=== PATIENT | female | born 1940 | race Caucasian/White ===

== ENCOUNTER 2018-09-08 13:30 | Emergency (ER) | payer MEDICARE, OTHER ==
[2018-09-08 15:02] VITALS: BP 140/71
[2018-09-08 15:02] LABS: ANION GAP 11.3 mmol/L (5-15); CHLORIDE,CL 102 mmol/L (98-115); SODIUM,NA 136 mmol/L (136-145)
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
== END 2018-09-08 15:38 | disposition home or self-care (01) ==
LOC: KA.ED 13:30
DX: K59.00 Constipation, unspecified (principal)
CPT/HCPCS: 36415; 80048; 81001; 85025; 99284

== ENCOUNTER 2021-01-10 15:47 | Emergency (ER) | payer MEDICARE, OTHER ==
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
[2021-01-10] MEDS ORDERED: Alum Hydrox/Mag Hydrox/Simeth 30 ML, Lidocaine 2% 15 ML PO ONE ×2 (15:58)
[2021-01-10 16:04] VITALS: BP 108/87; PULSE 93
== END 2021-01-10 17:50 | disposition home or self-care (01) ==
LOC: KA.ED 15:47
DX: T18.128A Food in esophagus causing other injury, initial encounter (principal)
CPT/HCPCS: 99283; A9270-GY

== ENCOUNTER 2021-12-31 15:26 | Emergency (ER) | payer MEDICARE, OTHER ==
[2021-12-31 15:36] VITALS: BP 164/102; PULSE 89
[2021-12-31] MEDS: Glucagon,Human Recombinant 1 MG Vial IVPUSH ONE ×2 (15:53→16:40)
[2021-12-31] MEDS: Phenol 1.4% Oral Spray 177 ML Bottle MUCMEM PRN (16:45)
[2021-12-31] MEDS: Phenol 1.4% Oral Spray 177 ML Bottle ONE (16:47)
== END 2021-12-31 17:50 ==
LOC: KA.ED 15:26
DX: T18.128A Food in esophagus causing other injury, initial encounter (principal); R13.19 Other dysphagia; Z91.018 Allergy to other foods; Z90.710 Acquired absence of both cervix and uterus
CPT/HCPCS: 70360; 96374; 96376; 99284; 99285-25; A9270-GY; J1610

== ENCOUNTER 2023-10-17 22:22 | Emergency (ER) | payer MEDICARE, OTHER ==
[2023-10-17] MEDS: Lidocaine/Epineph/Tetracaine 3 ML Syringe TOP ONE (22:50)
[2023-10-17] MEDS: Lidocaine 2% with EPINEPHrine 1:100,000 20 ML MDV INJECT ONE (23:05)
[2023-10-17] MEDS: Lidocaine 2% with EPINEPHrine 1:100,000 20 ML MDV ONE (23:48)
[2023-10-18] MEDS: Acetaminophen 325 MG Tab PO ONE (00:21)
[2023-10-18 04:04] VITALS: BP 154/76; PULSE 77
== END 2023-10-18 00:51 | disposition home or self-care (01) ==
LOC: KA.ED 22:22
DX: S01.01XA Laceration without foreign body of scalp, initial encounter (principal); S30.0XXA Contusion of lower back and pelvis, initial encounter; Z91.018 Allergy to other foods; Z90.710 Acquired absence of both cervix and uterus; W07.XXXA Fall from chair, initial encounter
CPT/HCPCS: 12002; 70450; 99284; A9270-GY; J3490

== ENCOUNTER 2024-08-23 08:10 | Inpatient (IN) | payer MEDICARE, OTHER ==
[2024-08-23] MEDS ORDERED: Sodium Chloride 0.9% 10 ML Syringe FLUSH PRN (08:23)
[2024-08-23 08:36] LABS: BASOPHILS ABSOLUTE AUTO 0.01 10^3/uL (0.00-0.10); BASOPHILS PERCENT AUTO 0.1 % (0.0-1.0); EOSINOPHILS ABSOLUTE AUTO 0.01 10^3/uL (0.10-0.30); EOSINOPHILS PERCENT AUTO 0.1 % (1.0-3.0); HEMATOCRIT 40.4 % (37.0-47.0); HEMOGLOBIN 13.1 g/dL (12.0-16.0); IMMATURE GRAN ABSOLUTE AUTO 0.01 10^3/uL (0.00-0.04); IMMATURE GRAN PERCENT AUTO 0.1 % (0.0-0.4); LYMPHOCYTES ABSOLUTE AUTO 0.72 10^3/uL (1.00-4.00); MEAN CORPUSCULAR HEMOGLOBIN 31.4 pg (27.0-31.0); MEAN CORPUSCULAR HGB CONC 32.4 g/dL (32.0-36.0); MEAN CORPUSCULAR VOLUME 96.9 fL (82.0-92.0); MEAN PLATELET VOLUME 11.3 fL (7.4-10.4); MONOCYTES ABSOLUTE AUTO 0.37 10^3/uL (0.10-0.80); MONOCYTES PERCENT AUTO 4.6 % (2.0-8.0); NEUTROPHILS ABSOLUTE AUTO 6.86 10^3/uL (2.50-7.00); NEUTROPHILS PERCENT AUTO 86.1 % (50.0-70.0); PLATELET COUNT,PLT 218 10^3/uL (150-400); RED BLOOD CELL COUNT 4.17 10^6/uL (3.80-5.50); RED CELL DISTRIBUTION WIDTH 12.7 % (11.5-14.5); WHITE BLOOD CELL COUNT,WBC 7.98 10^3/uL (5.00-10.00)
[2024-08-23 08:52] LABS: ALBUMIN 3.95 g/dL (3.40-5.00); ANION GAP 15.7 mmol/L (5-15); BILIRUBIN TOTAL 0.8 mg/dL (0.2-1.0); CALCIUM 9.2 mg/dL (8.7-10.3); CARBON DIOXIDE,CO2 25.8 mmol/L (21.0-32.0); CREATININE 0.81 mg/dL (0.51-1.17); EST CRCL DRUG DOSING (CG) 35.81 mL/min; POTASSIUM,K 4.5 mmol/L (3.5-5.1); PROTEIN TOTAL,TP 7.7 g/dL (6.4-8.2)
[2024-08-23 08:55] LABS: LACTIC ACID 1.9 mmol/L (0.4-2.0)
[2024-08-23] MEDS: Lactated Ringers 1,000 ML IV SCH (09:13)
[2024-08-23 10:04] LABS: BILIRUBIN,URINE NEGATIVE (NEGATIVE); COLOR,URINE LIGHT YELLOW (YELLOW); GLUCOSE,URINE NEGATIVE (NEGATIVE); KETONES,URINE 40 mg/dL (NEGATIVE); LEUKOCYTE ESTERASE,URINE SMALL (NEGATIVE); NITRITE,URINE NEGATIVE (NEGATIVE); OCCULT BLOOD,URINE TRACE-INTACT (NEGATIVE); PH,URINE 5.5 (5.0-9.0); PROTEIN,URINE NEGATIVE (NEGATIVE); UROBILINOGEN,URINE 0.2 E.U./dL (0.2-1.0)
[2024-08-23] MEDS: Ketorolac 30 MG/ML SDV IVPUSH ONE (10:28)
[2024-08-23 10:29] LABS: APPEARANCE,URINE CLEAR (CLEAR); BACTERIA,URINE FEW /HPF (NONE TO FEW); EPITHELIAL CELLS,URINE RARE /LPF; RBC,URINE 0-5 /HPF (0-5)
[2024-08-23] MEDS ORDERED: Polyethylene Glycol 3350 Powder 17 GM Packet PO PRN (12:05)
[2024-08-23] MEDS ORDERED: Sennosides/Docusate Sodium 50-8.6 MG Tab PO PRN (12:05)
[2024-08-23] MEDS ORDERED: traMADol 50 MG Tab PO PRN (12:05)
[2024-08-23] MEDS ORDERED: Ondansetron 4 MG Tab.DIS PO PRN (12:05)
[2024-08-23] MEDS: Enoxaparin 40 MG/0.4 ML Syringe SUBCUT SCH (13:14)
[2024-08-23] MEDS: cefTRIAXone 1 GM Vial IVPUSH SCH (13:14)
[2024-08-23] MEDS: Acetaminophen 325 MG Tab PO PRN (19:23)
[2024-08-24 07:37] LABS: BASOPHILS ABSOLUTE AUTO 0.04 10^3/uL (0.00-0.10); EOSINOPHILS ABSOLUTE AUTO 0.23 10^3/uL (0.10-0.30); EOSINOPHILS PERCENT AUTO 5.8 % (1.0-3.0); HEMATOCRIT 34.6 % (37.0-47.0); HEMOGLOBIN 11.2 g/dL (12.0-16.0); LYMPHOCYTES PERCENT AUTO 35.4 % (20.0-40.0); MEAN CORPUSCULAR HEMOGLOBIN 31.4 pg (27.0-31.0); MEAN CORPUSCULAR HGB CONC 32.4 g/dL (32.0-36.0); MEAN CORPUSCULAR VOLUME 96.9 fL (82.0-92.0); MEAN PLATELET VOLUME 11.3 fL (7.4-10.4); MONOCYTES ABSOLUTE AUTO 0.56 10^3/uL (0.10-0.80); MONOCYTES PERCENT AUTO 14.1 % (2.0-8.0); NEUTROPHILS ABSOLUTE AUTO 1.73 10^3/uL (2.50-7.00); NEUTROPHILS PERCENT AUTO 43.7 % (50.0-70.0); PLATELET COUNT,PLT 160 10^3/uL (150-400); RED BLOOD CELL COUNT 3.57 10^6/uL (3.80-5.50); RED CELL DISTRIBUTION WIDTH 12.8 % (11.5-14.5); WHITE BLOOD CELL COUNT,WBC 3.96 10^3/uL (5.00-10.00)
[2024-08-24 07:48] LABS: ALBUMIN 3.07 g/dL (3.40-5.00); ANION GAP 7.8 mmol/L (5-15); BILIRUBIN TOTAL 0.6 mg/dL (0.2-1.0); CALCIUM 8.6 mg/dL (8.7-10.3); CARBON DIOXIDE,CO2 28.3 mmol/L (21.0-32.0); CREATININE 0.95 mg/dL (0.51-1.17); EST CRCL DRUG DOSING (CG) 28.59 mL/min; POTASSIUM,K 4.1 mmol/L (3.5-5.1); PROTEIN TOTAL,TP 6.1 g/dL (6.4-8.2)
[2024-08-24] MEDS: Cholecalciferol (Vitamin D3) 25 MCG Tab PO SCH (08:29)
[2024-08-24] MEDS: Calcium Carbonate 600 MG Tab PO SCH (08:29)
[2024-08-25] MEDS ORDERED: Haloperidol Lactate 5 MG/ML SDV IM PRN (11:50)
[2024-08-25] MEDS: risperiDONE 1 MG Tab PO SCH (12:49)
[2024-08-25] MEDS: Cephalexin 250 MG Cap PO SCH (20:25)
[2024-08-26] MEDS: Enoxaparin 30 MG/0.3 ML Syringe SUBCUT SCH (12:41)
[2024-08-26] MEDS: Diclofenac Sodium 1% Gel 100 GM Tube TOP PRN (20:13)
[2024-08-27] MEDS: Cephalexin 250 MG Cap PO SCH (08:59)
[2024-08-27 09:20] LABS: BASOPHILS ABSOLUTE AUTO 0.05 10^3/uL (0.00-0.10); BASOPHILS PERCENT AUTO 0.9 % (0.0-1.0); EOSINOPHILS ABSOLUTE AUTO 0.47 10^3/uL (0.10-0.30); EOSINOPHILS PERCENT AUTO 8.4 % (1.0-3.0); HEMATOCRIT 40.8 % (37.0-47.0); IMMATURE GRAN ABSOLUTE AUTO 0.01 10^3/uL (0.00-0.04); IMMATURE GRAN PERCENT AUTO 0.2 % (0.0-0.4); MEAN CORPUSCULAR HEMOGLOBIN 30.9 pg (27.0-31.0); MEAN CORPUSCULAR HGB CONC 31.9 g/dL (32.0-36.0); MEAN CORPUSCULAR VOLUME 96.9 fL (82.0-92.0); MEAN PLATELET VOLUME 10.9 fL (7.4-10.4); MONOCYTES ABSOLUTE AUTO 0.28 10^3/uL (0.10-0.80); NEUTROPHILS ABSOLUTE AUTO 3.01 10^3/uL (2.50-7.00); NEUTROPHILS PERCENT AUTO 53.5 % (50.0-70.0); PLATELET COUNT,PLT 190 10^3/uL (150-400); RED BLOOD CELL COUNT 4.21 10^6/uL (3.80-5.50); RED CELL DISTRIBUTION WIDTH 12.9 % (11.5-14.5); WHITE BLOOD CELL COUNT,WBC 5.62 10^3/uL (5.00-10.00)
[2024-08-27 10:51] VITALS: BP 127/70; PULSE 78
== END 2024-08-27 11:10 | DRG 689 ==
LOC: KA.ED 08:10 → KA.MS 10:37
PROVIDERS: ADMIT Internal Medicine; ATTEND Internal Medicine
DX: N39.0 Urinary tract infection, site not specified (principal); G93.41 Metabolic encephalopathy; E87.1 Hypo-osmolality and hyponatremia; I10 Essential (primary) hypertension; Z91.018 Allergy to other foods; E46 Unspecified protein-calorie malnutrition; Z68.1 Body mass index [BMI] 19.9 or less, adult; F03.90 Unspecified dementia, unspecified severity, without behavioral disturbance, psychotic disturbance, mood disturbance, and anxiety; H54.7 Unspecified visual loss; I27.20 Pulmonary hypertension, unspecified; K21.9 Gastro-esophageal reflux disease without esophagitis; M81.0 Age-related osteoporosis without current pathological fracture; M25.50 Pain in unspecified joint; G31.84 Mild cognitive impairment of uncertain or unknown etiology; E55.9 Vitamin D deficiency, unspecified; E86.0 Dehydration; R10.9 Unspecified abdominal pain; Z79.899 Other long term (current) drug therapy; Z90.710 Acquired absence of both cervix and uterus; Z90.49 Acquired absence of other specified parts of digestive tract
CPT/HCPCS: 36415; 71045; 80053; 81001; 83605; 85025; 87086; 87088; 87186; 93005; 93010; 96361; 96374; 97161-GP; 99284; 99285-25; A9270-GY; J0696; J1650; J1885; J7120; Q3014